=== PATIENT | male | born 1980 | race Caucasian/White ===

== ENCOUNTER 2017-01-12 18:50 | Emergency (ER) | payer OTHER ==
[2017-01-12] MEDS ORDERED: HYDROXYCUT PO (18:55)
[2017-01-12] MEDS ORDERED: CYMBALTA60 M1 PO (18:55)
[2017-01-12] MEDS ORDERED: CLARITIN10 M6 PO (18:55)
[2017-01-12] MEDS ORDERED: NORCO 5-325 TA1 EACH PO (23:06)
[2017-01-12] MEDS ORDERED: CYCLOBENZAPRINE10 M1 PO (23:06)
[2017-01-12] MEDS ORDERED: ERYTHROMYCIN1 GM OP (23:06)
== END 2017-01-12 23:38 ==
LOC: EDMED 18:50
DX: T15.02XA Foreign body in cornea, left eye, initial encounter (principal); S39.012A Strain of muscle, fascia and tendon of lower back, initial encounter; F17.200 Nicotine dependence, unspecified, uncomplicated; X58.XXXA Exposure to other specified factors, initial encounter; Y93.89 Activity, other specified; Y99.8 Other external cause status
CPT/HCPCS: J2270; J2405